=== PATIENT | male | born 1985 | race Hispanic/Latino ===

== ENCOUNTER 2018-01-17 13:53 | Emergency (ER) | payer OTHER ==
[2018-01-17 14:01] VITALS: BP 132/91; RESP 18; TEMP 98; O2SAT 99
[2018-01-17 14:14] VITALS: PULSE 73
--- NOTE | 2018-01-17 14:26 | ED PDOC ---
HPI: Chest Pain Time Seen by Provider: 01/17/18 14:02 Chief Complaint (Nursing): Palpitations Chief Complaint (Provider): Palpitations History Per: Patient History/Exam Limitations: no limitations Additional Complaint(s): 32 years old male presents to ER for evaluation of palpitation after receiving a dental procedure. Patient reports he had a recent dental cleaning procedure after having an infection that his dentist thought might be an allergic reaction and gave patient epinephrine. He states he felt as if he was going to after he was given epinephrine. Patient reports he had the first half of the dental procedure yesterday and received Lidocaine with no reaction. He also states he has been having increased feeling of anxiety, started workup through a chief load dispatcher and scheduled for echo in couple of weeks. Patient states he is on Xanax and Zoflax. He denies any complaints at this time and believes he might just have been anxious. PMD: In [facility] Past Medical History Reviewed: Historical Data, Nursing Documentation, Vital Signs Vital Signs: Last Vital Signs Temp 98 F 01/17/18 13:58 Pulse 73 01/17/18 14:12 Resp 18 01/17/18 13:58 BP 132/91 H 01/17/18 13:58 Pulse Ox 99 01/17/18 16:39 - Medical History PMH: Anxiety - Surgical History Other surgeries: Dental procedure - Family History Family History: States: Unknown Family Hx - Social History Current smoker - smoking cessation education provided: No Alcohol: Social Drugs: Denies - Allergies Allergies/Adverse Reactions: Allergies Allergy/AdvReac Type Severity Reaction Status Date / Time No Known Allergies Allergy Verified 01/17/18 13:58 Wells Criteria for PE - Wells Criteria for Pulmonary Embolism Clinical Signs and Symptoms of DVT: No P.E is #1 Diagnosis, or Equally Likely: No Heart Rate >100: No Immobilization at least 3 days;Surgery previous 4 weeks: No Previous, objectively diagnosed PE or DVT: No Hemoptysis: No Malignancy w/treatment within 6 months, or palliative: No Total Score: 0 Review of Systems ROS Statement: Except As Marked, All Systems Reviewed And Found Negative Cardiovascular: Positive for: Palpitations Psych: Positive for: Anxiety Physical Exam - Reviewed Nursing Documentation Reviewed: Yes Vital Signs Reviewed: Yes - Physical Exam Appears: Positive for: Non-toxic, No Acute Distress Head Exam: Positive for: ATRAUMATIC, NORMOCEPHALIC Skin: Positive for: Normal Color, Warm, Dry Eye Exam: Positive for: Normal appearance, EOMI, PERRL Neck: Positive for: Normal, Painless ROM, Supple Cardiovascular/Chest: Positive for: Regular Rate, Rhythm. Negative for: Murmur Respiratory: Positive for: Normal Breath Sounds. Negative for: Respiratory Distress Extremity: Positive for: Normal ROM. Negative for: Tenderness, Swelling Neurologic/Psych: Positive for: Alert, Oriented (x3) - Laboratory Results Result Diagrams: 01/17/18 14:30 - ECG O2 Sat by Pulse Oximetry: 99 (RA) Pulse Ox Interpretation: Normal Medical Decision Making Medical Decision Making: Time: 1407 --32 years old male with most likely anxiety worsened with epinephrine --Will rule out cardiac eteology --Labs with Troponin --EKG --Observe and most likely discharge home 1634 --Troponin negative --Repeat EKG with heart score of 0 --Patient reports he has been symptoms free since he arrival to the ED --Patient will follow up with chief load dispatcher next week and discuss anxiety control with PMD --- Scribe Attestation: Documented by Sandy Hinton, acting as a scribe for Nohelia Mason MD. Provider Scribe Attestation: All medical record entries made by the Scribe were at my direction and personal ly dictated by me. I have reviewed the chart and agree that the record accurately reflects my personal performance of the history, physical exam, medical decision making, and the department course for this patient. I have also personally directed, reviewed, and agree with the discharge instructions and disposition. Disposition - Clinical Impression Clinical Impression: Palpitations, Anxiety - Disposition Disposition: Routine/Home Disposition Time: 16:34 Condition: IMPROVED Additional Instructions: Follow up with chief load dispatcher for further cardiac workup. Discuss anxiety/panic attacks with PMD for further management. Return tot he emergency department if symptoms worsen or if new symptoms develop. Instructions: Anxiety, Adult (DC), Palpitations (DC) Forms: [facility] (Barbadian) Print Language: GUINEAN
[2018-01-17 14:57] LABS: ALB/GLOB RATIO 1.2 (1.0-2.1); ALBUMIN 4.3 g/dL (3.5-5.0); ALT/SGPT 23 U/L (21-72); AST/SGOT 28 U/L (17-59); BLOOD UREA NITROGEN 17 mg/dl (9-20); CALCIUM 9.6 mg/dL (8.4-10.2); GFR NON-AFRICAN AMERICAN > 60
--- NOTE | 2018-01-18 10:33 | CARD ---
APPROVED REPORT Date of service: 01/17/2018 <Conclusion> Normal sinus rhythm Incomplete right bundle branch block Borderline ECG
== END 2018-01-17 16:40 | disposition home or self-care (01) ==
LOC: H.ER 13:53
DX: R00.2 Palpitations (principal); F41.9 Anxiety disorder, unspecified